=== PATIENT | female | born 1990 | race Caucasian/White ===

== ENCOUNTER 2016-06-29 21:21 | Inpatient (IN) | payer OTHER ==
[~2016-06-29] VITALS: Ht 154.9 cm; Wt 50.3 kg
--- NOTE | 2016-06-29 22:45 | NUR ---
ADMISSION NOTE: Patient is a 26 y.o male admitted at [facility] at approximately 2245pm of 06/29/16 for medically supervised withdrawal from Opiate and Benzo's. Body search done and skin check performed in Room 301, no contraband found. Abscess noted on left neck. Patient noted with track benites on both arms. Pt is 5'1" tall and weighs 111 lbs in a standing scale. Pt is cooperative during assessment. Patient is oriented to floor unit and room. Patient follows a vegetarian diet at home. Patient has allergies to Sulfa drug and shellfish. Pt wishes to be full Code. Patient is alert & oriented x4, ambulatory with a steady gait. Speech is clear and audible. Patient appears anxious but cooperative during interview. No shortness of breath noted. Respiration even & unlabored. Abdomen soft & non-distended. Bowel sounds active in all four quadrants. Pt complains of nausea & anxiety. No episode of vomiting noted. Patient denies pain/discomfort. Bilateral hand tremors noted. Patient appears moderately intoxicated. COWS 6 , CIWA 4 noted. Vitals upon admission: B/P 118/76, WV 95, Temp 98.0, RR 16, O2Sat 100%. Patient noted with past medical history of Anxiety, Depression, PTSD & Hepatitis C. Pt denies thoughts of suicide in the past. Pt currently denies SI/HI. Pt was able to provide urine sample for drug screen upon admission and is voiding clear yellow urine with no problems. Substance use: 1. Heroin- Pt has been using since 20 years old. Pt uses 2 grams daily intravenously for one week but has been using on and off for the past 2 months. Last use on the day of admission at the amount of 1.5 grams. 2. Klonopin- Pt has been prescribed when she was 13 years old for anxiety & PTSD. Pt has been taking it as prescribed and denies abusing medication. Pt takes 2mg BID daily. Last use on the day of admission. 3. Cocaine IV - Pt uses 1 gram intravenously on an intermittent non-daily basis. Last use was few weeks ago. Pt has been using since 17 years old. 4. Meth IV. Pt uses 1 gram intravenously on an intermittent non-daily basis. Last use was few weeks ago. Pt has been using since 19 years old. Treatment History: Pt has multiple detox treatment history. Pt unable to recall all of them. Last one was at [facility] in [place], [place] ([id number]). - Pt was sober for 60 days then relapsed. Pt then has been using on an off for the past 2 months. Per pt, she was kicked out of [facility] 2 days ago. Patient denies being hospitalized in the last 30 days. Patient reports his longest period of sobriety was for 4 months in 2014. Patient reports symptoms when he does not use as body aches, runny nose, sneezing, restless, insomnia, sweating, chills, nausea & tremors. Per pt, she is taking Doxycycline for her abscess on her left neck. Patient smokes 10 cigarettes daily. Patient refused pneumonia vaccines, educated patient risk & benefits but still refused. Patient does not have a PCP. Urine drug screen came back positive for Opiates. Fall & Seizure precautions are in place. All needs attended & met. Safety precautions are in place. Bed locked in lowest position. Both side rails padded & up. Call light within pt's reach. Dr. Tan notified of pt's admission. Will continue to monitor patient.
[2016-06-29 23:00] VITALS: BP 118/76
[2016-06-29] MEDS ORDERED: diphenhydrAMINE 50 MG CAPSULE PO PRN (23:30)
[2016-06-29] MEDS ORDERED: LORAZEPAM 2 MG/1 ML VIAL IM PRN (23:30)
[2016-06-29] MEDS ORDERED: MAG HYDROX/AL HYDROX/SIMETH 30 ML LIQUID UDC PO PRN (23:30)
[2016-06-29] MEDS ORDERED: DIAZEPAM 10 MG TABLET PO PRN ×2 (23:30)
[2016-06-29] MEDS ORDERED: DIAZEPAM 5 MG TABLET PO PRN (23:30)
[2016-06-29] MEDS ORDERED: ACETAMINOPHEN 325 MG TABLET PO PRN (23:30)
[2016-06-29] MEDS ORDERED: METHOCARBAMOL 750 MG TABLET PO PRN (23:30)
[2016-06-29] MEDS ORDERED: MAGNESIUM HYDROXIDE 30 ML LIQUID UDC PO PRN (23:30)
[2016-06-29] MEDS ORDERED: PROMETHAZINE HCL 25 MG/1 ML VIAL IM PRN (23:30)
[2016-06-29] MEDS ORDERED: LOPERAMIDE HCL 2 MG CAPSULE PO PRN ×2 (23:30)
[2016-06-29] MEDS ORDERED: BUPRENORPHINE HCL 2 MG TAB.SUBL SL PRN (23:30)
[2016-06-29] MEDS ORDERED: MIRALAX 17 GM POWD.PACK PO PRN (23:30)
[2016-06-29] MEDS ORDERED: ONDANSETRON ODT 4 MG TAB.RAPDIS SL PRN (23:30)
[2016-06-29] MEDS ORDERED: DICYCLOMINE HCL 20 MG TABLET PO PRN (23:30)
[2016-06-29] MEDS ORDERED: IBUPROFEN 400 MG TABLET PO PRN (23:30)
[2016-06-29] MEDS: HYDROXYZINE PAMOATE 25 MG CAPSULE PO PRN (23:57)
--- NOTE | 2016-06-29 23:57 | NUR ---
PRN Vistaril & Zofran Patient complains of anxiety & nausea. PRN Vistaril & Zofran given as ordered. Will continue to monitor.
[2016-06-29 23:58] LABS: *AMPHETAMINE, URINE NEGATIVE (NEGATIVE); *BARBITURATE, URINE NEGATIVE (NEGATIVE); *CANNABINOID, URINE NEGATIVE (NEGATIVE); *COCCAINE, URINE NEGATIVE (NEGATIVE); *OPIATE, URINE POSITIVE (NEGATIVE); *PHENCYCLIDINE SCREEN,URINE NEGATIVE (NEGATIVE)
[2016-06-30] MEDS ORDERED: HYDROXYZINE PAMOATE 25 MG CAPSULE ONE (00:04)
[2016-06-30] MEDS ORDERED: ONDANSETRON ODT 4 MG TAB.RAPDIS ONE (00:09)
--- NOTE | 2016-06-30 01:00 | NUR ---
Prn Reassessment Patient asleep in bed and apears comfortable. No episode of vomiting noted. No s/s of distress noted. Will continue to monitor.
[2016-06-30 01:37] LABS: *URINE HCG, QUAL NEGATIVE (NEGATIVE)
[2016-06-30 04:00] VITALS: BP 96/55
[2016-06-30] MEDS ORDERED: GABA800T2 PO (04:35)
[2016-06-30] MEDS ORDERED: CLON2TAB PO (04:35)
[2016-06-30] MEDS ORDERED: HYDR50CA PO (04:35)
[2016-06-30] MEDS ORDERED: DOXY100T2 PO (04:35)
[2016-06-30] MEDS ORDERED: CLON0.1T PO (04:35)
[2016-06-30] MEDS ORDERED: TOPI200T PO (04:35)
[2016-06-30] MEDS ORDERED: BUPR300T52 PO (04:35)
[2016-06-30] MEDS ORDERED: TRAZ-147 PO (04:35)
[2016-06-30] MEDS ORDERED: BUPR1FIL3 SL (04:36)
--- NOTE | 2016-06-30 07:28 | NUR ---
END OF SHIFT NOTE: Patient is a 26 y/o female admitted last night 06/29/16 at 2245 for Opiate and Benzo dependence. Patient with past medical history of Hepatitis C, Anxiety, Depression, & PTSD. No history of seizure noted. Patient is on a vegetarian diet with allergies to Sulfa drugs and shellfish. Full Code status. Fall & seizure precaution noted. Patient has no taper yet. Patient was given PRN Vistaril for anxiety & Zofran for nausea and were effective. Initial COWS is 6 CIWA 4. Pt has an abscess on her left neck. Pt is stable and vitals remains WNL. Pt slept for a total of 5 hours. Pt consumed 350 ml of fluids. Voided 1x with no bowel movement. All needs attended & met. Safety precautions are in place. Will endorse pt to day shift nurse.
--- NOTE | 2016-06-30 07:50 | NUR ---
START OF SHIFT Rcvd endorsement from warehouse shift supervisor nurse, client is a 26 year ol female admitted to [facility] on 06/29/16 for Opiate withdrawal and Benzodiazepine dependence. Past medical history of Hepatitis C, Anxiety, Depression, & PTSD. She denies any history of seizure. Vegetarian diet, she reports with allergies to Sulfa drugs and shellfish. Full Code status. Client refused lab work. Fall & seizure precaution noted. She is on PRN Diazepam to help manage withdrawal symptoms. PRN Vistaril for anxiety & Zofran for nausea noted effective. Last COWS 6 / CIWA 4. She slept 5 hrs. Client is in room A/Ox4 she appears anxious, enlarged pupils, abscess on her left neck intact, she is on antibiotic therapy Doxycycline 100mg PO daily. Seizure precautions, bed in lowest lock position, side rails x 2 up/padded. Call light within reach. Will continue to monitor.
--- NOTE | 2016-06-30 08:00 | NUR ---
Nursing notes Client states she is taking Suboxone 8mg daily as prescribed. MD. Tan made aware.
[2016-06-30 08:10] VITALS: BP 100/56
[2016-06-30] MEDS ORDERED: TUBERCULIN,PURIF.PROT.DERIV. 5 TU/0.1 ML TEST ID ONE (09:00)
--- NOTE | 2016-06-30 09:00 | NUR ---
client is refusing blood work, and charge nurse made aware. She request to take her medications later on.
[2016-06-30] MEDS ORDERED: Medication Not On Formulary EA (Gabapentin 1 TAB) PO SCH (10:30)
[2016-06-30] MEDS: DOXYCYCLINE HYCLATE 100 MG TABLET PO SCH (11:11)
[2016-06-30] MEDS: GABAPENTIN 400 MG CAPSULE PO SCH ×3 (11:13→16:55)
[2016-06-30] MEDS: MULTIVITAMINS,THERAPEUTIC TABLET PO SCH (11:13)
[2016-06-30 12:00] VITALS: BP 113/62
[2016-06-30] MEDS: buPROPion XL 150 MG TAB.SR.24H PO SCH (12:35)
[2016-06-30] MEDS: HYDROXYZINE PAMOATE 25 MG CAPSULE PO PRN ×2 (12:39→20:49)
--- NOTE | 2016-06-30 12:39 | NUR ---
PRN VISTARIL Client reports anxiety, manifested by restlessness, open and closing hands, Vistaril 50mg PO administered, risk/benefits discuss. Will continue monitor, call light within reach.
--- NOTE | 2016-06-30 13:39 | NUR ---
REASSESSMENT PRDenisse VIVAR Client states "I feel relaxed, thank you." Vistaril 50mg effective. She is in bed watching TV. Will continue monitor, call light within reach.
[2016-06-30] MEDS: CLONIDINE HCL 0.1 MG TABLET PO PRN (17:02)
--- NOTE | 2016-06-30 17:02 | NUR ---
PRN clonidine Client reports anxiety and irritability, increased P 95 noted. Clonidine 0.1mg PO administered, risk/benefits discuss. Will continue monitor, call light within reach
[2016-06-30 17:03] VITALS: BP 121/81
--- NOTE | 2016-06-30 18:02 | NUR ---
REASSESSMENT PRN clonidine Client reports some relief from anxiety and irritability, P 80, she is watching TV peacefully. Clonidine 0.1mg effective. Will continue monitor, call light within reach
[2016-06-30 18:59] LABS: BASOPHILS % (AUTO) 0.6 % (0.0-2.0); EOSINOPHILS # (AUTO) 0.2 K/uL (0.0-0.7); EOSINOPHILS % (AUTO) 3.7 % (0.0-7.0); HEMATOCRIT 35.1 % (37.0-47.0); HEMOGLOBIN 11.4 g/dL (12.0-16.0); LYMPHOCYTES # (AUTO) 2.2 K/uL (0.8-4.8); LYMPHOCYTES % (AUTO) 33.4 % (20.5-51.5); MEAN CORPUSCULAR HEMOGLOBIN 24.1 uug (27.0-31.0); MEAN CORPUSCULAR HGB CONC 33 g/dL (32.0-37.0); MEAN CORPUSCULAR VOLUME 74.2 fL (81.0-99.0); MONOCYTES # (AUTO) 0.4 K/uL (0.1-1.30); MONOCYTES % (AUTO) 6.4 % (0.0-11.0); NEUTROPHILS # (AUTO) 3.7 K/uL (1.8-8.9); NEUTROPHILS % (AUTO) 55.9 % (38.5-71.5); PLATELET COUNT (AUTO) 252 K/uL (150-450); RED BLOOD CELL COUNT(AUTO) 4.73 MIL/uL (4.20-5.40); RED CELL DISTRIBUTION WIDTH 15.8 % (11.5-14.5); WHITE BLOOD COUNT (AUTO) 6.5 K/uL (4.0-11.2)
[2016-06-30 19:10] LABS: ETHANOL < 3 MG/DL (0-0)
[2016-06-30 19:12] LABS: ALANINE AMINOTRANSFERASE 21 U/L (14-59); ALBUMIN 2.9 g/dL (3.4-5.0); ALKALINE PHOSPHATASE 86 U/L (50-136); AMYLASE 64 U/L (25-115); ASPARTATE AMINOTRANSFERASE 17 U/L (15-37); BILIRUBIN,TOTAL 0.2 mg/dL (0.2-1.0); CALCIUM 8.7 mg/dL (8.5-10.1); CARBON DIOXIDE 31 mmol/L (21-32); CHLORIDE 105 mmol/L (98-107); CREATININE 0.8 mg/dL (0.6-1.3); GFR 88 mL/min (>60); GLUCOSE 108 mg/dL (74-106); LIPASE 183 U/L (73-393); SODIUM SERUM 141 mmol/L (136-145); TOTAL PROTEIN, SERUM 6.6 g/dL (6.4-8.2); UREA NITROGEN, BLOOD 10 mg/dL (7-18)
[2016-06-30 19:21] LABS: THYROID STIMULATING HORMONE 0.279 mIU/mL (0.358-3.740)
[2016-06-30 19:23] LABS: HIV-1 p24 ANTIGEN NON REACTIVE (NONREACTIVE); HIV-1/2 ANTIBODY NON REACTIVE (NONREACTIVE)
--- NOTE | 2016-06-30 19:36 | NUR ---
END OF SHIFT Endorsed to incoming nurse, client is a 26 year ol female admitted to [facility] on 06/29/16 for Opiate withdrawal and Benzodiazepine dependence. Past medical history of Hepatitis C, Anxiety, Depression, & PTSD. She denies any history of seizure. Vegetarian diet, she reports with allergies to Sulfa drugs and shellfish. Full Code status. Fall & seizure precaution noted. She is on PRN Diazepam to help manage withdrawal symptoms. PRN Vistaril for anxiety & Clonidine for anxiety administered, noted effective. Last COWS 4 / CIWA 4. She is not compliant with group therapy. adequate intake and output. Client is in room A/Ox4, watching TV, abscess on her left neck intact, she is on antibiotic therapy Doxycycline 100mg PO daily, tolerating well. Bed in lowest lock position, side rails x 2 up/padded. Call light within reach. Will continue to monitor.
[2016-06-30 19:47] LABS: ANISOCYTOSIS 1+; EOSINOPHILS % (MANUAL) 1 % (0-8); LYMPHOCYTES % (MANUAL) 44 % (20-40); MONOCYTES % (MANUAL) 7 % (2-10); NEUTROPHILS % (MANUAL) 48 % (42-75); PLATELET ESTIMATE ADEQUATE
[2016-06-30 20:00] VITALS: BP 97/52
--- NOTE | 2016-06-30 20:00 | NUR ---
Start of Shift Pt is a 26 year old female admitted on 06/29/2016 for heroin IV/Klonopin/Cocaine/Meth dependence, PRNs available. Pt reported using Heroin IV 2g/daily for 1 week, Klonopin PO 4mg/daily, Cocaine IV 1 gram "a few weeks ago" and Meth IV 1 gram "a few weeks ago". Pt is allergic to sulfa drugs and shellfish, vegetarian diet, fall/seizure precautions - no history of seizures and full code. PMH: Hepatitis C, anxiety, depression and PTSD. Upon assessment, pt reports anxiety, reports fatigue, muscle aches, skin noted to be flushed, abscess noted in left neck, intact - pt is on Doxycycline 100mg PO daily. respirations even and unlabored, denies n/v/d, skin warm, moist - intact, bowel sounds active x4, abdomen soft. Safety measures in place, call light within reach, side rails up x2, bed locked and in low position. Will continue to monitor.
[2016-06-30] MEDS: TOPIRAMATE 25 MG TABLET PO SCH (20:49)
[2016-06-30] MEDS: TRAZODONE 100 MG TABLET PO SCH (20:49)
--- NOTE | 2016-06-30 20:49 | NUR ---
PRN Administration Pt reported feeling anxious, requested relief. Vistaril 50mg PRN administered. Safety measures in place, call light within reach, side rails up x2, bed locked and in low position. Will continue to monitor.
--- NOTE | 2016-06-30 21:49 | NUR ---
PRN Reassessment Upon reassessment, pt is sleeping, no s/s of distress noted, respirations even and unlabored. Safety measures in place, call light within reach, side rails up x2, bed locked and in low position. Will continue to monitor.
[2016-07-01] VITALS: BP 101/51
--- NOTE | 2016-07-01 | NUR ---
Vital Signs BP 101/51, pulse 93, respirations 12, Spo2 98%, temp 97.9 CIWA/COWS deferred d/t pt sleeping, to asses while pt is awake as ordered. Pt is sleeping, no s/s of distress noted, respirations even and unlabored. Safety measures in place, call light within reach, side rails up x2, bed locked and in low position. Will continue to monitor.
[2016-07-01 04:00] VITALS: BP 88/50
--- NOTE | 2016-07-01 04:00 | NUR ---
Vital Signs BP 88/50, pulse 85, respirations 16, Spo2 98%, temp 98 CIWA/COWS deferred d/t pt sleeping, to asses while pt is awake as ordered. Pt is sleeping, no s/s of distress noted, respirations even and unlabored. Safety measures in place, call light within reach, side rails up x2, bed locked and in low position. Will continue to monitor.
[2016-07-01] MEDS: HYDROXYZINE PAMOATE 25 MG CAPSULE PO PRN ×2 (05:25→18:42)
[2016-07-01] MEDS: CLONIDINE HCL 0.1 MG TABLET PO PRN ×2 (05:25→18:41)
--- NOTE | 2016-07-01 05:25 | NUR ---
PRN Administration Upon awakening, pt reports anxiety, muscle/joint aches throughout body, skin noted to be clammy, face flushed. Clonidine 0.1mg PRN, Robaxin 750mg PRN and Vistaril 50mg PRN administered. Safety measures in place, call light within reach, side rails up x2, bed locked and in low position. Will continue to monitor.
--- NOTE | 2016-07-01 06:25 | NUR ---
PRN Reassessment Upon reassessment, pt is sleeping, eyes closed, respirations even and unlabored, no s/s of distress noted. Safety measures in place, call light within reach, side rails up x2, bed locked and in low position. Will continue to monitor.
--- NOTE | 2016-07-01 07:00 | NUR ---
End of Shift Pt is a 26 year old female admitted on 06/29/2016 for heroin IV/Klonopin/Cocaine/Meth dependence, PRNs available. Pt reported using Heroin IV 2g/daily for 1 week, Klonopin PO 4mg/daily, Cocaine IV 1 gram "a few weeks ago" and Meth IV 1 gram "a few weeks ago". Pt is allergic to sulfa drugs and shellfish, vegetarian diet, fall/seizure precautions - no history of seizures and full code. PMH: Hepatitis C, anxiety, depression and PTSD. During shift, pt reports anxiety, presented with fatigue/muscle aches - scheduled Topamax and Trazodone administered. Vistaril 50mg PRN x2, Clonidine 0.1mg PRN and Robaxin 750mg PRN administered. Pt requires encouragement to participate in plan of care. Pt remained in room throughout shift. Abscess in left neck, intact - pt is on Doxycycline 100mg PO daily. COWS 3 and CIWA 3. Pt slept for 7 hours, intake of 500 ml PO and voids x1. Safety measures in place, call light within reach, side rails up x2, bed locked and in low position. Endorsed to day shift nurse.
--- NOTE | 2016-07-01 07:40 | NUR ---
START OF SHIFT Pt is a 26 yr old female, AA&Ox3. Pt was admitted on 06/29/16 for Opiate/Benzo dependence and is on PRN's for s/s. Pt is full code, regular diet and allergies to sulfa and shellfish. Pt reports of PMH of Hep C, Anxiety, Depression, and PTSD. Pt received Vistaril PRN, Clonidine PRN and Robaxin PRN during the night. Medication was effective. Pt is c/o cold chills and muscle aching. Encouraged increase fluid intake. Skin is intact, warm and dry to touch. No tremors seen or felt. Pt remains on ATB for skin abscess. No adverse reaction noted. Safety precautions observed. Will continue to monitor. Call light is within reach.
[2016-07-01 08:00] VITALS: BP 105/72
[2016-07-01] MEDS: TOPIRAMATE 25 MG TABLET PO SCH ×2 (08:51→20:08)
[2016-07-01] MEDS: buPROPion XL 150 MG TAB.SR.24H PO SCH (08:51)
[2016-07-01] MEDS: DOXYCYCLINE HYCLATE 100 MG TABLET PO SCH (08:51)
[2016-07-01] MEDS: MULTIVITAMINS,THERAPEUTIC TABLET PO SCH (08:51)
[2016-07-01] MEDS: GABAPENTIN 400 MG CAPSULE PO SCH ×3 (09:01→17:00)
[2016-07-01] MEDS ORDERED: BUPRENORPHINE HCL 2 MG TAB.SUBL SL PRN (09:30)
[2016-07-01 12:00] VITALS: BP 116/70
[2016-07-01] MEDS: BUPRENORPHINE HCL 2 MG TAB.SUBL SL SCH ×2 (12:08→20:15)
--- NOTE | 2016-07-01 12:41 | NUR ---
ENDORSEMENT GIVEN Endorsed pt to RN nurse to continue care. Pt was admitted on 06/29/16 for Opiate and Benzo dependence and started on 3 day modified 3 day Subutex taper. Pt received first dose at 1208. Medication jimi well. No acute distress noted. Last COWS score was 8 CIWA score was 4. Pt is on fall and seizure precautions. Pt remains on Doxycycline for left side of neck skin abscess. No adverse reaction noted. Encouraged increase fluid intake. Call light is within reach.
--- NOTE | 2016-07-01 12:41 | NUR ---
Endorsement received Pt is a 26 year old female admitted on 06/29/16 for Opiate and Benzo dependence/withdrawal. pt is on a 3 day modified Subutex taper tolerating well last COWS 8, allergic to shellfish and sulfa. currently on antibiotics for abscess on her neck. all safety measures in place will continue to monitor and provide support
--- NOTE | 2016-07-01 15:30 | NUR ---
MRSA Positive Erich from lab called and notified of pt being positive for MRSA, MD notified and aware, MRSA has been added to Pt instruction, central supply contacted isolation cart has been placed, MRSA order has been placed. all needs met, all safety measures in place will continue to monitor
[2016-07-01 16:00] VITALS: BP 125/79
--- NOTE | 2016-07-01 17:13 | NUR ---
Refused medication Pt refused his scheduled gabapentin 600mg in the evening. Pt educated about the importance of medication compliance and the consequences of not taking the medications, pt verbalized understanding but still refused the medication. contacted and notified. all needs met will continue to monitor. Addendum: 07/01/16 at 1738 by SHOSHANA LAURENT RN Correction the gabapentin dose is 800mg not 600mg
--- NOTE | 2016-07-01 18:45 | NUR ---
PRN MEDICATIONS Pt c/o anxiety presented with chills, and tremors requested something for relief, non-pharmacological techniques interventions provided x3 and were not effective. PRN Clonidine 0.1mg and Vistaril 50 mg administered PO, educated pt about s/e of medication and when to contact nurse. all needs met, all safety measures in place, will continue to monitor.
--- NOTE | 2016-07-01 19:14 | NUR ---
End of Shift Pt is a 26 year old female admitted on 06/29/2016 for heroin IV/Klonopin/Cocaine/Meth dependence. Pt is full code, regular diet on fall/seizure precautions, reports allergies to Sulfa and selfish. Pt is on 3 day modified taper tolerating well. PMH: Hepatitis C, anxiety, depression and PTSD. Pt received PRN Vistaril 50mg and Clonidine 0.1mg . Pt requires encouragement to participate in plan of care. Pt remained in room throughout shift. Abscess in left neck, intact - pt is on Doxycycline 100mg PO daily. Dr. Urbina will be coming today to perform I and D. Her last COWS 4 and CIWA 4. Pt is MRSA positive, contact precautions in place MD aware. Pt did not participate in any groups or activities. Pt ate all of the meals, Pt stated that medications and treatments are working well at controlling withdrawals, evidenced by low assessment scores ranging from 8-4. Pt is A&Ox4 VS WNL respiration even unlabored denies nausea vomiting and diarrhea. pts total fluid intake is 1296ml with 3 void and no stools. All safety measures in place, all pertinent information discussed with shift supervisor rn endorsement given to shift supervisor rn nurse.
[2016-07-01 20:00] VITALS: BP 100/56
--- NOTE | 2016-07-01 20:00 | NUR ---
Start of Shift Pt is a 26 year old female admitted on 06/29/2016 for heroin IV/Klonopin/Cocaine/Meth dependence, started on 3 day Subutex taper. Pt reported using Heroin IV 2g/daily for 1 week, Klonopin PO 4mg/daily, Cocaine IV 1 gram "a few weeks ago" and Meth IV 1 gram "a few weeks ago". Pt is allergic to sulfa drugs and shellfish, vegetarian diet, fall/seizure precautions - no history of seizures and full code. PMH: Hepatitis C, anxiety, depression and PTSD. Upon assessment, pt reports reports fatigue, muscle aches, skin noted to be flushed, abscess noted in left neck, intact - pt is on Doxycycline 100mg PO daily. respirations even and unlabored, denies n/v/d, skin warm, moist - intact, bowel sounds active x4, abdomen soft. Safety measures in place, call light within reach, side rails up x2, bed locked and in low position. Will continue to monitor.
--- NOTE | 2016-07-01 20:05 | NUR ---
PRN Reassessment Clonidine PRN and Vistaril PRN administered during day shift at 1845. Upon reassessment, pt states, "I feel steadier now". Medications effective. Safety measures in place, call light within reach, side rails up x2, bed locked and in low position. Will continue to monitor.
[2016-07-01] MEDS: TRAZODONE 100 MG TABLET PO SCH (20:08)
[2016-07-01] MEDS: MUPIROCIN 2% OINT 22 GM TUBE NS SCH (20:08)
[2016-07-02] VITALS: BP 102/57
--- NOTE | 2016-07-02 | NUR ---
Vital Signs BP 102/57, pulse 78, respirations 16, Spo2 99%, temp 97.9 CIWA/COWS deferred d/t pt sleeping, to asses while pt is awake as ordered. Pt is sleeping, no s/s of distress noted, respirations even and unlabored. Safety measures in place, call light within reach, side rails up x2, bed locked and in low position. Will continue to monitor.
--- NOTE | 2016-07-02 04:00 | NUR ---
Pt refused to be woken up for 0400 VS CIWA/COWS deferred d/t pt sleeping, to asses while pt is awake as ordered. Pt is sleeping, no s/s of distress noted, respirations even and unlabored. Safety measures in place, call light within reach, side rails up x2, bed locked and in low position. Will continue to monitor.
--- NOTE | 2016-07-02 07:00 | NUR ---
End of Shift Pt is a 26 year old female admitted on 06/29/2016 for heroin IV/Klonopin/Cocaine/Meth dependence, started on 3 day Subutex taper. Pt reported using Heroin IV 2g/daily for 1 week, Klonopin PO 4mg/daily, Cocaine IV 1 gram "a few weeks ago" and Meth IV 1 gram "a few weeks ago". Pt is allergic to sulfa drugs and shellfish, vegetarian diet, fall/seizure precautions - no history of seizures and full code. PMH: Hepatitis C, anxiety, depression and PTSD. Pt is MRSA positive in the nares. I & D of abscess on left neck scheduled for today. During shift pt presented with fatigue, muscle aches - scheduled taper medications administered, COWS 5 and CIWA 3. No PRN medications administered. VS stable, Pt slept for 5 hours, intake of 1000 ml PO and voids x5. VS stable, Safety measures in place, call light within reach, side rails up x2, bed locked and in low position. Endorsed to day shift nurse.
--- NOTE | 2016-07-02 07:50 | NUR ---
START OF SHIFT Rcvd client in room, she is A/O x 4, she presents with irritable mood, flat affect, she reports anxiety, chills, fatigue.. Encouraged increased fluids as tolareated. Encouraged group therapy attendance. Per shift supervisor film processing nurse, client is a 26 year old year ol female admitted to [facility] on 06/29/16 for withdrawal from Heroin and Benzodiazepines. She is on day 3 day Subutex taper to manage s/s of w/d. Last COWS 5/ CIWA 3 @ 1999, she had an uneventful night, slept 5 hrs. She reports PMH anxiety, depression, PTSD, HCV, she denies any induced-seizure withdrawal. She is on contact isolation and antibiotic therapy Bactroban 2% oint to nares for MRSA infection/colonization. I & D of abscess on left neck scheduled for today. She is full code, vegetarian diet, reports allergies to Sulfa, shellfich. Client is on seizure precautions. Side rails up/padded x 2, call light within reach, bed locked in lowest positions. Will continue with plan of care
[2016-07-02] MEDS: TOPIRAMATE 25 MG TABLET PO SCH ×2 (08:24→20:28)
[2016-07-02] MEDS: BUPRENORPHINE HCL 2 MG TAB.SUBL SL SCH ×3 (08:25→20:28)
[2016-07-02] MEDS: GABAPENTIN 400 MG CAPSULE PO SCH ×3 (08:25→16:52)
[2016-07-02] MEDS: buPROPion XL 150 MG TAB.SR.24H PO SCH (08:25)
[2016-07-02] MEDS: DOXYCYCLINE HYCLATE 100 MG TABLET PO SCH (08:25)
[2016-07-02] MEDS: MULTIVITAMINS,THERAPEUTIC TABLET PO SCH (08:25)
[2016-07-02] MEDS: MUPIROCIN 2% OINT 22 GM TUBE NS SCH ×2 (08:25→20:29)
[2016-07-02 08:56] VITALS: BP 102/62
[2016-07-02] MEDS ORDERED: SILVER NITRATE APPLICATOR STICK EACH TP PRN (09:00)
[2016-07-02] MEDS ORDERED: LIDOCAINE 1%-EPI 1:100,000 20 ML VIAL IJ PRN (09:00)
[2016-07-02 13:17] VITALS: BP 100/63
[2016-07-02 14:06] LABS: HCV AB >11.0 s/co ratio (0.0-0.9); HEPATITIS B CORE AB, IgM Negative (Negative); HEPATITIS B SURFACE AG Negative (Negative)
--- NOTE | 2016-07-02 15:07 | NUR ---
PRN CLONIDINE, VISTARIL Client reports anxiety, manifested by change in vitals. Clonidine and Vistaril administered. Call light within reach.
[2016-07-02] MEDS: HYDROXYZINE PAMOATE 25 MG CAPSULE PO PRN (15:09)
[2016-07-02] MEDS: CLONIDINE HCL 0.1 MG TABLET PO PRN (15:09)
--- NOTE | 2016-07-02 16:07 | NUR ---
REASSESSMENT PRN CLONIDINE, VISTARIL Client reports less anxiety, she is in bed watching tv. Clonidine and Vistaril effective. Call light within reach
[2016-07-02] MEDS: KETOROLAC TROMETHAMINE 30 MG INJ IM PRN (16:53)
--- NOTE | 2016-07-02 16:53 | NUR ---
PRN TORADOL 30MG INJ Client reports pain 10/10 on left side of neck s/p I&D, Toradol 30mg IM to left buttock, will continue to monitor. call light within reach.
[2016-07-02 16:59] VITALS: BP 119/71
--- NOTE | 2016-07-02 17:53 | NUR ---
REASSESSMENT PRN TORADOL 30MG INJ Client is in bed, sound asleep, easy to arouse, RR 16. Toradol 30mg effective. will continue to monitor. call light within reach.
--- NOTE | 2016-07-02 19:35 | NUR ---
END OF SHIFT Endorsed to incoming nurse, client is a 26 year ol female admitted to [facility] on 06/29/16 for Opiate withdrawal and Benzodiazepine dependence. Past medical history of Hepatitis C, Anxiety, Depression, & PTSD. She denies any history of seizure. Vegetarian diet, she reports with allergies to Sulfa drugs and shellfish. Full Code status. Fall & seizure precaution noted. She is on 3 day Subutex taper, tolerating well. PRN Vistaril & Clonidine for anxiety administered, noted effective. PRN Toradol 30mg IM for pain 10/10 to left side of neck sp I&D, noted effective. Last COWS 5 / CIWA 5. She is not compliant with group therapy. adequate intake and output. Client is in room A/Ox4, watching TV. Bed in lowest lock position, side rails x 2 up/padded. Call light within reach. Will continue to monitor.
[2016-07-02 20:00] VITALS: BP 109/58
--- NOTE | 2016-07-02 20:00 | NUR ---
Start of Shift Pt is a 26 year old female admitted on 06/29/2016 for heroin IV/Klonopin/Cocaine/Meth dependence, started on 3 day Subutex taper. Pt reported using Heroin IV 2g/daily for 1 week, Klonopin PO 4mg/daily, Cocaine IV 1 gram "a few weeks ago" and Meth IV 1 gram "a few weeks ago". Pt is allergic to sulfa drugs and shellfish, vegetarian diet, fall/seizure precautions - no history of seizures and full code. PMH: Hepatitis C, anxiety, depression and PTSD. Upon assessment, pt muscle aches, skin noted to be flushed, Pt is SP I&D of abscess in left neck, dressing intact - pt is on Doxycycline 100mg PO daily and Dakins 0.125% wet to moist dressing/packing daily. respirations even and unlabored, denies n/v/d, skin warm, moist - intact, bowel sounds active x4, abdomen soft. Safety measures in place, call light within reach, side rails up x2, bed locked and in low position. Will continue to monitor.
[2016-07-02] MEDS: TRAZODONE 100 MG TABLET PO SCH (20:28)
[2016-07-02] MEDS ORDERED: MUPIROCIN 2% OINT 22 GM TUBE NS SCH (21:00)
--- NOTE | 2016-07-03 | NUR ---
Pt refused to be woken up for 0000 VS CIWA/COWS deferred d/t pt sleeping, to asses while pt is awake as ordered. Pt is sleeping, no s/s of distress noted, respirations even and unlabored. Safety measures in place, call light within reach, side rails up x2, bed locked and in low position. Will continue to monitor.
--- NOTE | 2016-07-03 07:00 | NUR ---
End of Shift Pt is a 26 year old female admitted on 06/29/2016 for heroin IV/Klonopin/Cocaine/Meth dependence, started on 3 day Subutex taper. Pt reported using Heroin IV 2g/daily for 1 week, Klonopin PO 4mg/daily, Cocaine IV 1 gram "a few weeks ago" and Meth IV 1 gram "a few weeks ago". Pt is allergic to sulfa drugs and shellfish, vegetarian diet, fall/seizure precautions - no history of seizures and full code. PMH: Hepatitis C, anxiety, depression and PTSD. MRSA positive. During shift, pt presented with muscle aches flushed skin - scheduled taper medications administered, effective in management of s/s of withdrawal as reported by pt, COWS 4 and CIWA 4. No PRN medications administered. Pt is sp I&D of abscess in left neck, dressing intact - pt is on Doxycycline 100mg PO daily and Dakins 0.125% wet to moist dressing/packing daily. VS stable, pt slept for 5 hours, intake of 600 ml PO and voids x2. Safety measures in place, call light within reach, side rails up x2, bed locked and in low position. Endorsed to day shift nurse.
--- NOTE | 2016-07-03 07:45 | NUR ---
START OF SHIFT Received report from appeals specialist nurse. Pt is lying in bed resting. She is a 26 yo female admitted to [facility] on 06/29 for Opiate dependence with a h/o using BZD, Cocaine, and Meth. She is A&o x4 and ambulatory. Allergies to Sulfa and shellfish. Pt has a PMH of hepatitis C, anxiety, depression, and PTSD. Pt is positive for MRSA of the nares. I&D performed yesterday on left side neck abscess with wound care orders and oral abx. On admission she admitted to using Heroin IV 2 grams per day for 1 week, Klonopin 2 mg BID, cocaine IV 1 gram, and meth IV I gram. She started a modified subutex taper on 07/01. She is relaxed in bed and easily arousable. Respirations even and unlabored. Fall and seizure precautions in place. Bed is down with call light in reach.
[2016-07-03 08:00] VITALS: BP 98/56
[2016-07-03] MEDS ORDERED: BUPRENORPHINE HCL 2 MG TAB.SUBL SL SCH (09:00)
[2016-07-03] MEDS: MULTIVITAMINS,THERAPEUTIC TABLET PO SCH (09:34)
[2016-07-03] MEDS: DOXYCYCLINE HYCLATE 100 MG TABLET PO SCH (09:34)
[2016-07-03] MEDS: MUPIROCIN 2% OINT 22 GM TUBE NS SCH ×2 (09:34→21:29)
[2016-07-03] MEDS: TOPIRAMATE 25 MG TABLET PO SCH ×2 (09:34→21:28)
[2016-07-03] MEDS: buPROPion XL 150 MG TAB.SR.24H PO SCH (09:34)
[2016-07-03] MEDS: GABAPENTIN 400 MG CAPSULE PO SCH ×3 (09:34→18:37)
[2016-07-03] MEDS: SODIUM HYPOCHLORITE 0.125% 473 ML BOTTLE TP SCH (09:35)
[2016-07-03] MEDS: KETOROLAC TROMETHAMINE 30 MG INJ IM PRN (09:36)
--- NOTE | 2016-07-03 09:40 | NUR ---
PRN Toradol administration Pt c/o body aches and will be having wound care done on her I&D site. PRN Toradol administered.
--- NOTE | 2016-07-03 10:30 | NUR ---
Wound Care Wound care performed per orders. PRN Toradol administered prior. Pt tolerated the procedure with minimal pain.
[2016-07-03] MEDS: HYDROXYZINE PAMOATE 25 MG CAPSULE PO PRN ×3 (10:49→21:38)
--- NOTE | 2016-07-03 10:50 | NUR ---
PRN Vistaril administration Pt reports feeling anxious. She is frequently shifting in bed. PRN Vistaril administered.
[2016-07-03] MEDS ORDERED: ONDANSETRON 4 MG/2 ML VIAL IV PRN (11:15)
[2016-07-03 12:00] VITALS: BP 97/56
[2016-07-03 16:00] VITALS: BP 97/58
[2016-07-03] MEDS ORDERED: TOPI25TA8 PO (18:52)
[2016-07-03] MEDS ORDERED: CLON0.1T14 PO (18:52)
[2016-07-03] MEDS ORDERED: Ibuprofen PO (18:52)
[2016-07-03] MEDS ORDERED: Gabapentin PO (18:52)
[2016-07-03] MEDS ORDERED: HYDR-3895 PO (18:52)
[2016-07-03 20:00] VITALS: BP 101/56
--- NOTE | 2016-07-03 20:15 | NUR ---
END OF SHIFT 315 Report provided to restaurant shift supervisor nurse. Pt is lying in bed resting. She is a 26 yo female admitted to [facility] on 06/29 for Opiate dependence with a h/o using BZD, Cocaine, and Meth. She is A&o x4 and ambulatory. Allergies to Sulfa and shellfish. Pt has a PMH of hepatitis C, anxiety, depression, and PTSD. Pt is positive for MRSA of the nares. She had a of a left side neck abscess with wound care orders and oral abx. On admission she admitted to using Heroin IV 2 grams per day for 1 week, Klonopin 2 mg BID, cocaine IV 1 gram, and meth IV I gram. She started a modified subutex taper on 07/01. Taper was completed today and she is scheduled for discharge tomorrow. She experienced anxiety throughout the day . PRN Vistaril administered x2. Last COWS 4 and CIWA 3. Fall and seizure precautions in place. Bed is down with call light in reach.
[2016-07-03] MEDS: TRAZODONE 100 MG TABLET PO SCH (21:28)
[2016-07-03] MEDS: CLONIDINE HCL 0.1 MG TABLET PO PRN (21:37)
--- NOTE | 2016-07-03 21:37 | NUR ---
PRN MEDICATION: Prn Vistaril 50 mg p.o. given per patient's request for medication for "anxiety".
--- NOTE | 2016-07-03 21:38 | NUR ---
PRN MEDICATION: Prn Catapres 0.1 mg p.o. given per patient's request for her c/o " some withdrawals; some shakes, increasing anxiety and skin temperature flashes.
--- NOTE | 2016-07-03 21:38 | NUR ---
PRN MEDICATION: Prn Catapres 0.1 mg p.o. given per patient's request for her c/o " having withdrawal symptoms of, 'some shakes, some skin flashes and increasing anxiety'. CIWA 5
--- NOTE | 2016-07-03 22:38 | NUR ---
REASSESSMENT PRN MEDICATION: Patient is resting comfortably with eyes closed and respirations regular, unlabored at 14.
[2016-07-04] VITALS: BP 98/58
--- NOTE | 2016-07-04 04:00 | NUR ---
Patient requests at 0000 that V/S not be taken at 0400. COWS deferred as patient is sleeping at this time.
--- NOTE | 2016-07-04 06:30 | NUR ---
0630 Patient slept a total of 6 hours and she had 1 void and no stools. Total intake was 547 ml p.o. Prn medications given noted separately per floor protocol. V/SS afebrile, COWS 3. Patient is presently sleeping soundly in stable condition with eyes closed and respirations unlabored at 14.
--- NOTE | 2016-07-04 07:03 | NUR ---
start of shift note: received pt from restaurant shift leader nurse, pt is in stable condition at this time no s/s of pain or discomfort. pt is admitted to [facility] for meth/opiate/benzo withdrawal/dependence. pt is set for discharge today. pt slept 6 hrs. will assist pt with discharging and will continue to monitor pt for any changes.
[2016-07-04] MEDS: GABAPENTIN 400 MG CAPSULE PO SCH (08:39)
[2016-07-04] MEDS: DOXYCYCLINE HYCLATE 100 MG TABLET PO SCH (08:39)
[2016-07-04] MEDS: MUPIROCIN 2% OINT 22 GM TUBE NS SCH (08:40)
[2016-07-04] MEDS: TOPIRAMATE 25 MG TABLET PO SCH (08:40)
[2016-07-04] MEDS: MULTIVITAMINS,THERAPEUTIC TABLET PO SCH (08:40)
[2016-07-04] MEDS: buPROPion XL 150 MG TAB.SR.24H PO SCH (08:40)
[2016-07-04] MEDS: SODIUM HYPOCHLORITE 0.125% 473 ML BOTTLE TP SCH (08:41)
[2016-07-04 09:12] LABS: *AMPHETAMINE, URINE NEGATIVE (NEGATIVE); *BARBITURATE, URINE NEGATIVE (NEGATIVE); *CANNABINOID, URINE NEGATIVE (NEGATIVE); *COCCAINE, URINE NEGATIVE (NEGATIVE); *OPIATE, URINE POSITIVE (NEGATIVE); *PHENCYCLIDINE SCREEN,URINE NEGATIVE (NEGATIVE)
--- NOTE | 2016-07-04 10:45 | NUR ---
discharge note: pt left the unit in stable condition, no s/s of pain, discomfort, or any withdrawal symptoms. pt teaching was administered and wound care was done and taught, all supplies given to pt. pts personal belongings were returned. Pt's V/s wnl. pt will be transferred to treatment via private car.
== END 2016-07-04 10:45 | disposition other institution (70) | DRG 982 ==
LOC: SRC 21:30
PROVIDERS: ADMIT Internal Medicine; ATTEND Internal Medicine
PROC: HZ2ZZZZ Detoxification Services for Substance Abuse Treatment (ICD-10-PCS; principal; 2016-06-29)
PROC: HZ31ZZZ Individual Counseling for Substance Abuse Treatment, Behavioral (ICD-10-PCS; 2016-07-01)
PROC: 0JB40ZZ Excision of Right Neck Subcutaneous Tissue and Fascia, Open Approach (ICD-10-PCS; 2016-07-02)
DX: F11.23 Opioid dependence with withdrawal (principal); F11.288 Opioid dependence with other opioid-induced disorder; L03.221 Cellulitis of neck; L02.11 Cutaneous abscess of neck; F33.1 Major depressive disorder, recurrent, moderate; Z59.0 Homelessness; Z88.1 Allergy status to other antibiotic agents; S11.8 Open wound of other specified parts of neck; W26.8XXS Contact with other sharp object(s), not elsewhere classified, sequela; I80.8 Phlebitis and thrombophlebitis of other sites; Z22.322 Carrier or suspected carrier of Methicillin resistant Staphylococcus aureus; E88.09 Other disorders of plasma-protein metabolism, not elsewhere classified; D64.9 Anemia, unspecified; B19.20 Unspecified viral hepatitis C without hepatic coma; F43.10 Post-traumatic stress disorder, unspecified; Z88.2 Allergy status to sulfonamides; Z83.3 Family history of diabetes mellitus; F17.210 Nicotine dependence, cigarettes, uncomplicated
CPT/HCPCS: 36415; 71010; 80307; 83690; 83735; 84443; 84703; 85025; 86592; 86705; 86803; 87070; 87340; 87806; A4663; G6040-TC; J1885; J3490; Q0162

== ENCOUNTER 2017-01-02 13:58 | Inpatient (IN) | payer OTHER ==
[~2017-01-02] VITALS: Ht 154.9 cm; Wt 47.6 kg
[~2017-01-02 13:58] MED LIST: BUPR300T52 PO; CLON0.1T14 PO; Gabapentin PO; HYDR-3895 PO; Ibuprofen PO; TOPI25TA PO; TRAZ-147 PO
[2017-01-02 14:25] VITALS: BP 115/69
--- NOTE | 2017-01-02 14:28 | NUR ---
PRE ASSESSMENT: PT IS IN INTAKE. SHE IS A/OX 4. SHE PRESENTS WITH BLUNTED AFFECT AND DEPRESSED MOOD. SHE DENIES S/I AND H/I. SHE DENIES S/I AND H/I. SHE HAS AN ABSCESS TO WRIST WHICH IS REDDENED. EDEMA NOTED . NO DRAINAGE NOTED. SHE STATES SHE USES HEROIN IV 2-2 1/2 GRAMS DAILY X 2 MONTHS. LAST USED THIS AM AT 1000. SHE ALSO REPORTS USING PRESCRIBED KLONOPIN 2 MG PO DAILY. LAST USED 3-4 DAYS AGO. SHE ALSO REPORTS USING COCAINE IV. 1 GM EVERY FEW DAYS. LAST USED 3-4 DAYS AGO. SHE STATES SHE WAS HERE IN [place] AND WENT TO [facility] AFTER. SHE STATES SHE HAS BEEN USING A TOTAL OF 2 MONTHS. WILL ASSESS ON UNIT. VS WNL.
[2017-01-02 15:34] LABS: *URINE HCG, QUAL NEGATIVE (NEGATIVE)
[2017-01-02 15:34] LABS: BASOPHILS % (AUTO) 0.3 % (0.0-2.0); EOSINOPHILS % (AUTO) 0.6 % (0.0-7.0); HEMOGLOBIN 11.5 g/dL (10.9-14.3); LYMPHOCYTES # (AUTO) 1.5 K/uL (20.0-40.0); LYMPHOCYTES % (AUTO) 27.9 % (20.5-51.5); MEAN CORPUSCULAR HEMOGLOBIN 23.6 uug (24.7-32.8); MEAN CORPUSCULAR HGB CONC 33 g/dL (32.3-35.6); MEAN CORPUSCULAR VOLUME 71.9 fL (75.5-95.3); MONOCYTES # (AUTO) 0.3 K/uL (2.0-10.0); MONOCYTES % (AUTO) 5.8 % (0.0-11.0); NEUTROPHILS # (AUTO) 3.4 K/uL (1.8-8.9); NEUTROPHILS % (AUTO) 65.4 % (38.5-71.5); PLATELET COUNT (AUTO) 204 K/uL (179-408); RED BLOOD CELL COUNT(AUTO) 4.87 MIL/uL (3.63-4.92); WHITE BLOOD COUNT (AUTO) 5.2 K/uL (3.8-11.8)
[2017-01-02 15:37] LABS: ALANINE AMINOTRANSFERASE 23 U/L (14-59); ALKALINE PHOSPHATASE 105 U/L (50-136); ASPARTATE AMINOTRANSFERASE 13 U/L (15-37); BILIRUBIN,TOTAL 0.2 mg/dL (0.2-1.0); CARBON DIOXIDE 30 mmol/L (21-32); CHLORIDE 103 mmol/L (98-107); CREATININE 0.7 mg/dL (0.6-1.3); GLUCOSE 116 mg/dL (74-106); MAGNESIUM 2.1 mg/dL (1.8-2.4); POTASSIUM 4.4 mmol/L (3.5-5.1); TOTAL PROTEIN, SERUM 7.4 g/dL (6.4-8.2); UREA NITROGEN, BLOOD 11 mg/dL (7-18)
[2017-01-02 15:42] LABS: *AMPHETAMINE, URINE NEGATIVE (NEGATIVE); *BARBITURATE, URINE POSITIVE (NEGATIVE); *CANNABINOID, URINE NEGATIVE (NEGATIVE); *COCCAINE, URINE NEGATIVE (NEGATIVE); *OPIATE, URINE POSITIVE (NEGATIVE); *PHENCYCLIDINE SCREEN,URINE NEGATIVE (NEGATIVE)
[2017-01-02 15:50] LABS: ETHANOL < 3 MG/DL (0-0)
[2017-01-02 16:00] VITALS: BP 104/66
[2017-01-02 16:30] VITALS: BP 104/66
[2017-01-02] MEDS ORDERED: FLUT16SP BNOSTRILS (16:41)
--- NOTE | 2017-01-02 16:57 | NUR ---
ADMISSION: A 26 YO FEMALE ADMITTED FOR MEDICALLY SUPERVISED WITHDRAWAL FROM OPIATES AND BENZOS. SHE STATES SHE HAS BEEN USING HEROIN 2-2 1/1 GRAMS OF HEROIN FOR 2 MONTHS. LAST USED THIS AM AT 10AM. SHE ALSO REPORTS USING KLONOPIN 2 MG DAILY FOR 2 MONTHS. LAST USED 3-4 DAYS AGO. SHE ALSO REPORTS USING COCAINE IV 1 GM LAST USE 3- 4 DAYS AGO. SHE HAS A REDDENED ABSCESS WITH NO DRAINAGE NOTED TO R HAND. SHE REPORTS PAIN 5/10 TO HAND.SHE PRESENTS WITH BLUNTED AFFECT AND DEPRESSED MOOD. PT DENIES S/I AND H/I. SHE STATES SHE CANNOT STOP USING ON HER OWN. Addendum: 01/02/17 at 1717 by ANANTH GATES RN SHE STATES SHE IS IN AND OUT OF SOBER LIVINGS AND MOTELS AND IS TIRED OF LIVING LIKE THIS. SHE REPORTS MEDICAL HX OF HEP C,HSV 2,ANXIETY AND DEPRESSION. SHE WAS HERE AT [facility] IN JUNE 2016 AND STATES SHE HAS BEEN IN MULTIPLE TREATMENTS WITH NO SUCCESS. SHE DENIES A PCP.ORIENTED PT TO STAFF AND UNIT. WILL PROVIDE SAFE AND SUPPORTIVE ENVIRONMENT.
[2017-01-02 17:08] LABS: BAND % (MANUAL) 1 % (0-10); EOSINOPHILS % (MANUAL) 1 % (0-8); LYMPHOCYTES % (MANUAL) 27 % (20-40); MONOCYTES % (MANUAL) 6 % (2-10); NEUTROPHILS % (MANUAL) 65 % (42-75)
--- NOTE | 2017-01-02 18:07 | NUR ---
PHARMACY CLINICAL NOTES: ( VANCOMYCIN DOSING) S: 26 YO FEMALE; RESIDENT OF RECOVERY UNIT, WAS ORDERED VANCOMYCIN FOR TREATEMENT OF CELLULITIS O: BUN/SCR 11/0.7, WBC 5.2, TEMP 98, DOSING WT 105 LBS A/P: WILL DOSE VANCOMYCIN 1 GM Q14H ESTIMATED PEAK 46 AND TROUGH OF 18 WILL ORDER TROUGH PRIOR TO 4TH DOSE ON 01/05 ~ 1330(NOT IN THE COMPUTER YET) WILL CONTINUE TO FOLLOW AND ADJUST THE DOSE NECESSARY
--- NOTE | 2017-01-02 18:57 | NUR ---
END OF SHIFT: NEW ADMISSION GIVEN MOTRIN FOR R HAND PAIN 5/10 AND EFFECTIVE. SHE IS INTERACTING WITH PEERS AND COOPERATIVE. WILL CONTINUE TO PROVIDE SAFE AND SUPPORTIVE ENVIRONMENT.
--- NOTE | 2017-01-02 19:15 | NUR ---
START OF SHIFT Received 26 year old female patient admitted on 01/02/17 for Klonopin, Heroin and Cocaine dependency. Pt is full code with allergy to sulfa and shellfish. 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 She reports using Klonopin PO 2 mg daily. Last dose was 12/28/16. Heroin IV 2-2.5 grams daily for 2 months. Last dose was morning of admission. And Cocaine IV 1 gram every few days for 2 months. Last dose was 12/28/16. Per endorsement, pt noted with right hand abscess and requires IV Vancomycin per MD order. She received PRN Motrin. Pt is alert and oriented x4, breathing is even and unlabored. Safety measures in place. Will continue to monitor.
[2017-01-02 20:00] VITALS: BP 108/73
--- NOTE | 2017-01-02 20:00 | NUR ---
UDS CLARIFICATION Pt positive for barbiturates. Clarified substance use with pt. Pt reports taking Phenobarbital 30 mg PO, last used one week ago.
--- NOTE | 2017-01-02 20:30 | NUR ---
NURSING NOTE Pt was seen and examined by Chandni Mckeon NP. New order to apply warm compress to right hand abscess. Order noted and carried out.
--- NOTE | 2017-01-02 20:37 | NUR ---
NURSING NOTE 22 gauge IV inserted to right shoulder by Emergency Dept, RN. Patent and flushing well. Will continue to monitor.
[2017-01-02] MEDS ORDERED: QUET200T PO (20:48)
--- NOTE | 2017-01-02 20:57 | NUR ---
MD Communication: Patient reports that she takes Topamax 50mg PO AM and HS. Patient also reports taking Seroquel 200mg PO HS. Dr Duncan contacted and new order received for Topamax 50mg PO one-time and Seroquel 200mg PO one-time. Order entered on behalf of Dr Duncan as he is currently without computer access.
--- NOTE | 2017-01-02 23:00 | NUR ---
NURSING NOTE Pt reported taking Seroquel 200 mg daily at bedtime. Dr. Duncan was notified and received one time order for Seroquel 200 mg. Pt refused to take this medication. Pt stated " I'll be able to sleep tonight, I'll need it tomorrow." Risks/benefits were explained x3. Pt verbalized understanding but still refused.
[2017-01-03] VITALS: BP 102/63
[2017-01-03 04:00] VITALS: BP 98/62
--- NOTE | 2017-01-03 04:00 | NUR ---
COWS/CIWA DEFERRED Pt lying in bed with eyes closed noted to be asleep. Respirations 16, breathing is even and unlabored. Safety measures in place. Will monitor.
[2017-01-03 06:06] LABS: HEPATITIS B SURFACE AG Negative (Negative)
--- NOTE | 2017-01-03 07:11 | NUR ---
END OF SHIFT Pt is 26 year old female patient admitted on 01/02/17 for Klonopin, Heroin and Cocaine dependency. Pt is full code with allergy to sulfa and shellfish. 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 She is scheduled to start a 5 day Ativan and 5 day Subutex taper today. She has a 22 gauge IV on the right shoulder and is receiving Vancomycin 200mL, @ 133mL/hr every 14 hours. She received one time order for Topamax 50 mg, and Seroquel 200 mg but refused to take the Seroquel. She slept a total of 5 hrs, Intake: 330mL, Void: x5, BM:0. Pt remains alert and oriented x4, breathing is even and unlabored. Safety measures in place. Endorsed to oncoming shift.
--- NOTE | 2017-01-03 07:30 | NUR ---
START OF SHIFT Pt 26 y/o female admitted for opioid/ bzo dependence. Pt received in room on bed with eyes closed resting but easily arousable to name. Pt alert and oriented to name, place,and time. Perrla. Skin warm and dry to touch. Respirations even and unlabored. Bilateral hand tremors noted slightly. peripheral IV on right shoulder 22g patent and intact and in place with no redness and is not warm to touch, and saline locked. It was reported that pt slept for 5 hours last night. Bed on lowest position with side rails x2 up for safety. Call light within reach. No distress noted at this time.
[2017-01-03 08:00] VITALS: BP 101/59
--- NOTE | 2017-01-03 09:00 | NUR ---
SUBUTEX Scheduled subutex 4 mg po due at 0900 held. Pt states, "I'm not ready for it yet". cows=7.
--- NOTE | 2017-01-03 10:30 | NUR ---
IV DC IV site with redness and warm to touch. Pt stated feels burning sensation when flush IV. IV dc'd and tolerated well. MD aware with new order for midline. Rx made aware that we are waiting for midline to be started before the vancomycin IV dose scheduled at 1000, with clarification to notify Rx when midline is inserted.
[2017-01-03 12:00] VITALS: BP 102/51
--- NOTE | 2017-01-03 13:00 | NUR ---
SUBUTEX Pt with cows=4. Pt states "i dont want the subutex yet". Subutex 4 mg sL held.
--- NOTE | 2017-01-03 13:00 | NUR ---
IV After multiple attempts, pt is refusing to have peripheral IV started. Educated pt on risks.
[2017-01-03 16:00] VITALS: BP 112/65
--- NOTE | 2017-01-03 16:32 | NUR ---
Clinical Pharmacy Note: Vancomycin Pharmacy to dose Subjective: To continue vancomycin in this 26 y/o female [facility] patient for cellulitis Objective: height 155cm weight 105 lbs BUN 11 (01/02) Scr 0.7 (01/02) Wbc 5.2 (01/02) temp 98 Assessment/Plan Regimen of 1gm q14rhs was started last night at 2000 for estimated torugh of 18. However, IV line blew after first dose given and pt awaited new line. Patient received new IV line at 1500 today and as newly re-scheduled vanco was started, IV line blew again. Patient awaiting new IV line. Pt will be kept on current schedule of 1gm q14hrs however awaiting new line to start first dose again. Will check for new IV line in am (license distributor will call this evening) for rescheduling of regimen. Will order trough before 4th scheduled dose when able. Will continue to follow.
--- NOTE | 2017-01-03 17:00 | NUR ---
SUBUTEX Pt with cows=4. Pt states "i dont want the subutex yet". Subutex 4 mg sL held.
--- NOTE | 2017-01-03 19:15 | NUR ---
START OF SHIFT Received 26 year old female patient admitted on 01/02/17 for Klonopin, Heroin and Cocaine dependency. Pt is full code with allergy to sulfa and shellfish. 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 She reports using Klonopin PO 2 mg daily. Last dose was 12/28/16. Heroin IV 2-2.5 grams daily for 2 months. Last dose was morning of admission. And Cocaine IV 1 gram every few days for 2 months. Last dose was 12/28/16. Per endorsement, pt is scheduled to have midline inserted in order to continue IV antibiotics. Pt is aware. She received one time order of Topamax. Subutex taper has not been initiated. Pt is alert and oriented x4, breathing is even and unlabored. Safety measures in place. Will continue to monitor.
--- NOTE | 2017-01-03 19:24 | NUR ---
END OF SHIFT Pt 26 y/o female admitted for opioid/ bzo dependence. Pt alert and oriented to name, place,and time. Perrla. Skin warm and dry to touch. Respirations even and unlabored. Bilateral hand tremors noted slightly. Pt observed mostly in bed throughout the day. Pt medication compliant and tolerated well. No ASE noted. Awaiting for midline nurse. Endorsed to next shift with instructions per RX to give the vancomycin IV as soon as the midline is inserted and to leave message with RX on time given. Bed on lowest position with side rails x2 up for safety. Call light within reach. No distress noted at this time.
[2017-01-03 20:00] VITALS: BP 109/63
--- NOTE | 2017-01-03 21:30 | NUR ---
MIDLINE INSERTION Midline nurse Panda inserted to the left upper arm. Pt tolerated well. Will monitor.
--- NOTE | 2017-01-03 22:00 | NUR ---
MEDICATION REFUSAL Pt refused 2100 dose of Subutex 4mg. Pt complains of body aches, chills, anxiety and agitation. COWS:8. Pt stated " I don't want to take it too early." Risks/benefits explained, pt still refused. Will continue to monitor.
--- NOTE | 2017-01-03 23:30 | NUR ---
NURSING NOTE Pt observed to be in nurses station asking to speak with Kevin in room 316. Pt walked into room 316 yelling " Panda wake up, I need to talk to you. I want to leave." Pt resisted redirection from staff and refused to leave the pt's room. Pt in hallway yelling and cursing at staff. Jackie chua was called. Pt was assisted safely back to her room.
--- NOTE | 2017-01-03 23:39 | NUR ---
MD COMMUNICATION Pt initially refused 2100 dose of Subutex 4mg. Pt observed with increased restlessness, anxiety, and agitation. COWS:14. Pt agreed to take Subutex 4 mg for withdrawal symptoms. Medication administered late. MD made aware.
--- NOTE | 2017-01-03 23:50 | NUR ---
MD Communication: Dr Marquez contacted again to report that Subutex 4mg was only mildly effective. Patient continues to be very restless, rocking in bed, agitated, pulling at midline tubing. Dr Marquez to enter order for Ativan 2mg PO one-time.
[2017-01-04] VITALS: BP 102/59
--- NOTE | 2017-01-04 00:32 | NUR ---
PRN Ativan PO 2mg: Patient continues to be very restless, agitated, rocking in bed, pulling at midline tubing. PRN Ativan 2mg PO administered as ordered. Will continue to monitor.
--- NOTE | 2017-01-04 01:32 | NUR ---
PRN Ativan 2mg Reassessment: Patient noted to be laying in bed comfortably and reports less anxiety and agitation. CIWA is now 4 one hour after PRN Ativan 2mg PO administration.
--- NOTE | 2017-01-04 07:25 | NUR ---
END OF SHIFT Pt is a 26 year old female patient admitted on 01/02/17 for Klonopin, Heroin and Cocaine dependency. Pt is full code with allergy to sulfa and shellfish. 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 Her midline was inserted by midline nurse, pt tolerated well. At 2350 she received one time Ativan 2 mg for increased restlessness and agitation. At 0032 she received PRN Ativan 2 mg. She slept a total of 3 hrs, Intake: 547mL Void: x2, BM:0, COWS:18, CIWA: 9. Pt remains alert and oriented x4, breathing is even and unlabored. Safety measures in place. Endorsed to oncoming shift.
--- NOTE | 2017-01-04 07:30 | NUR ---
START OF SHIFT Pt 26 y/o female admitted for opioid/ bzo dependence. Pt received in room on bed with eyes closed resting but easily arousable to name. Pt alert and oriented to name, place,and time. Perrla. Skin warm and slightly moist to touch. Respirations even and unlabored. Bilateral hand tremors noted slightly. Mid-line on left upper arm 22g intact and in place, and is patent, with no redness and is not hot to touch, saline locked. It was reported that pt slept for 3 hours last night. Pt with sitter 1:1 to monitor for safety. Bed on lowest position with side rails x2 up for safety. Call light within reach. No distress noted at this time.
[2017-01-04 08:00] VITALS: BP 110/72
[2017-01-04 12:00] VITALS: BP 105/72
--- NOTE | 2017-01-04 12:03 | NUR ---
PHARMACY NOTES: (VANCOMYCIN DOSING) S: 26 yo female started on vancomycin 1gm ivpb q14h for dx of Cellulitis. Pt did not receive abx due to IV access unavailable. Re-scheduled and received Vancomycin dose for 2300 last night. Re-schedule next dose for 1300 today (dose #2) O: no current labs available A/P: will continue with current regimen of 1 gm q14h. plan to order trough prior to 4th dose on 01/06 ~ 1700( not in the computer yet). plan to order Bun/scr at the same time . will continue to monitor.
--- NOTE | 2017-01-04 13:00 | NUR ---
MIDLINE Dressing change for midline done and pt tolerated well. Midline intact, patent, and in place, with no redness and is not hot to touch.
[2017-01-04 16:00] VITALS: BP 108/76
--- NOTE | 2017-01-04 18:27 | NUR ---
END OF SHIFT Pt 26 y/o female admitted for opioid/ bzo dependence. Pt alert and oriented to name, place,and time. Perrla. Skin warm and slightly moist to touch. Respirations even and unlabored. Bilateral hand tremors noted. Mid-line on left upper arm 22g intact and in place, and is patent, with no redness and is not hot to touch, saline locked. Pt with periods of agitation and anxiety this morning, but redirectable. Pt with sitter 1:1 to monitor for safety. Bed on lowest position with side rails x2 up for safety. Call light within reach. No distress noted at this time.
--- NOTE | 2017-01-04 19:30 | NUR ---
START OF SHIFT Pt 26 y/o female admitted for opioid/ benzo dependency.Pt received sleeping in bed with sitter at bedside.Pt is on 1:1 close observation for safety.All safety measures in place,bed is locked in the lowest position with side rails up x 2.Pt is on regular diet,full code status,allergic to Sulfa.Pt is on IV ATB for right hand abscess. Pt has Mid-line on left upper arm with 22g intact and in place,no redness or swelling noted.Last COWS was 5,CIWA 2 at 1600.No s/s of acute distress noted,will continue to monitor for safety.
[2017-01-04 20:00] VITALS: BP 108/67
[2017-01-05] VITALS: BP 101/59
--- NOTE | 2017-01-05 | NUR ---
COWS/CIWA DEFERRED Pt lying in bed with eyes closed,fast asleep; breathing is even and unlabored. Sitter remains at bedside for safety. Safety measures in place. Will continue monitor.
--- NOTE | 2017-01-05 03:30 | NUR ---
IV ATB ADMINISTERED ORDERED.PT IS TOLERATING WELL.
[2017-01-05 04:00] VITALS: BP 87/57
--- NOTE | 2017-01-05 06:42 | NUR ---
END OF SHIFT Pt 26 y/o female admitted for opioid/ benzo dependency.Pt is on 1:1 close observation for safety.All safety measures in place,bed is locked in the lowest position with side rails up x 2.Pt is on regular diet,full code status,allergic to Sulfa.Pt is on IV ATB for right hand abscess. Pt has Mid-line on left upper arm with 22g patent ,intact and in place,no redness or swelling noted.Last COWS was 5,CIWA 2 at 2000 last night,midnight and 0400 assessments deferred d/t pt sleeping.Pt slept all night without any problem,no PRN meds given.No behavior problem noted.Pt slept 8 hrs,fluid intake was 291 mls,voided x 1.No c/o pain or s/s of acute distress noted,will continue to monitor for safety.
--- NOTE | 2017-01-05 07:55 | NUR ---
START OF SHIFT Rcvd endorsement from ongoing nurse, client is in room, She is a/o X 4, she presents with anxious mood, flat affect, and flushed face, she is fully ambulatory with steady gait, increased P 110. Client is on a 1:1 for unsteady gait. She is on room restrictions per administration order d/t behavioral issues. She reports anxiety, difficulty sleeping, restless legs, decreased appetite, fatigue, and chills. Midline on L arm, 22G intact/patent. Client is on Vancomycin IV for infection to R hand. Encourage client to attend group therapy for skills to maintain sober, she verbalized understanding. Encourage client to increase PO fluid intake as tolerated to facilitate detox. Client is a 26 yo male, admitted to [facility] for withdrawal from clonazepam and heroin. She is on 5 day Ativan / Subutex taper (day 3), tolerating well with no ASE. Last CIWA 2/ COWS 5 @ 1999. Client had an uneventful ight, she slept 8 hrs. Client reported allergy to shelfish and sulfa, full code, regular diet. Client denies a hx of withdrawal-induced seizure. Side rails x 2 up/padded, bed in lowest/lock position. Call light within reach.
[2017-01-05 08:34] VITALS: BP 110/76
--- NOTE | 2017-01-05 10:34 | NUR ---
Therapist prompted client about group times. Client stated she would try to attend groups today.
[2017-01-05 12:00] VITALS: BP 103/63
--- NOTE | 2017-01-05 13:11 | NUR ---
Clinical Pharmacy Note: Vancomycin Dosing per Pharmacy Subjective: Vancomycin IV to continue on this 26 yo female patient for cellulitis. Objective: BUN 11/Scr 0.7 (01/02) WBC 5.2 (01/02) Temperature 98.6 Assessment/Plan: Will continue same dose of vancomycin 1000mg IVPB Q14hr for today. Will draw a vancomycin trough level prior to the 4th dose of vancomycin (ordered for today at 1630). Will review the level when available & adjust the dose if needed. Will follow daily. Addendum: 01/05/17 at 1705 by DAQUAN MENCHACA VANCO TROUGH LEVEL: 9.8 SINCE VANCO TROUGH LEVEL SUB- THERAPEUTIC, WILL CHANGE DOSE FROM VANCO 1GM ivpb Q14H TO VANCO 1GM Q11H FOR PREDICTED VANCO TROUGH LEVEL OF 15 MCG/ML. 1ST DOSE OF THIS REGIMEN IS DUE TODAY AT 1800
[2017-01-05 16:25] VITALS: BP 119/75
[2017-01-05 16:46] LABS: CREATININE 0.9 mg/dL (0.6-1.3); POTASSIUM 3.7 mmol/L (3.5-5.1)
--- NOTE | 2017-01-05 17:20 | NUR ---
Midline on L arm removed, applying straight, downward pressure, while applying digital pressure, covered with sterile dressing. Instructed client to check for blood on dressing, if she develops any pain, burning or swelling to consult with her PCP, she verbalized understanding.
--- NOTE | 2017-01-05 17:30 | NUR ---
Administrative discharge: Client with behavioral issues, she was not compliant with plan of care. She stated the she was not ready for sobriety. Multiple staff members spoke with client without any success on behavior. VS are WNL, Client denies any suicidal/homicidal ideations. Dr. Tan notified. Client was given a list of community resources in case she is in need of help. all belongings returned to client. Client left the unit at 1730.
== END 2017-01-05 17:30 | disposition left against medical advice (07) | DRG 894 ==
LOC: SRC 14:03
PROVIDERS: ADMIT Internal Medicine; ATTEND Internal Medicine
DX: F11.23 Opioid dependence with withdrawal (principal); E46 Unspecified protein-calorie malnutrition; E88.09 Other disorders of plasma-protein metabolism, not elsewhere classified; F14.20 Cocaine dependence, uncomplicated; L03.113 Cellulitis of right upper limb; Z68.1 Body mass index [BMI] 19.9 or less, adult; L02.511 Cutaneous abscess of right hand; F31.81 Bipolar II disorder; S61.431S Puncture wound without foreign body of right hand, sequela; S61.531S Puncture wound without foreign body of right wrist, sequela; X78.8XXS Intentional self-harm by other sharp object, sequela; Z81.1 Family history of alcohol abuse and dependence; Z81.3 Family history of other psychoactive substance abuse and dependence; Z83.3 Family history of diabetes mellitus; Z81.8 Family history of other mental and behavioral disorders; Z91.89 Other specified personal risk factors, not elsewhere classified; F43.10 Post-traumatic stress disorder, unspecified; G47.00 Insomnia, unspecified; Z59.1 Inadequate housing; F17.210 Nicotine dependence, cigarettes, uncomplicated; Z88.2 Allergy status to sulfonamides; F13.239 Sedative, hypnotic or anxiolytic dependence with withdrawal, unspecified; B19.20 Unspecified viral hepatitis C without hepatic coma
CPT/HCPCS: 36415; 80307; 80345; 80361; 83735; 84703; 85025; 86580; 86592; 86705; 86803; 87040; 87340; 87806; A4663; G0480; J3370